=== PATIENT | male | born 1985 | race Caucasian/White ===

== ENCOUNTER 2016-05-01 14:58 | Emergency (ER) | payer MEDICAID ==
[2016-05-01 15:05] VITALS: BP 147/83; PULSE 96; TEMP 98.6
[2016-05-01 15:16] VITALS: BMI 36.1
[2016-05-01] MEDS ORDERED: DIPHTHERIA AND TETANUS (ADULT) 0.5 ML SYR IM ONE ×2 (15:16)
--- NOTE | 2016-05-01 15:23 | EDPRACDOC ---
- General Information Chief Complaint: Foot Pain Stated Complaint: FB IN FOOT Time Seen by Provider: 05/01/16 15:13 Information Source: Patient Mode Of Arrival: Car Home Medications: Home Medications Divalproex Sodium [Depakote] 1,000 mg PO HS 01/03/13 Allergies/Adverse Reactions: Allergies Allergy/AdvReac Type Severity Reaction Status Date / Time No Known Allergies Allergy Verified 05/01/16 15:11 - History of Present Illness Onset: today HPI: STEPPED ON A SMALL PIECE OF GLASS IN HIS HOME. THINKS NEEDS TETANUS. SAYS HE COULDN'T PULL IT OUT HIMSELF BECAUSE HE ALMOST PASSED OUT FROM THE PAIN. Foreign Body Context: Reports: Injury Foreign Body: Glass Location of Possible Foreign Body: FOOT Pain Severity: Mild Shortness of breath: None Associated Signs & Symptoms: Reports: None ED Past Medical History - History Reviewed Yes Nurses notes reviewed and agree except as marked - Patient Medical History Neurological History: Reports: Seizures Psychological History: Denies: Depression Systemic History: Reports: Hypothyroidism - Social Medical History Smoking Status: Never smoker EDM Review of Systems - Review of Systems ROS Negative Except as Marked: Yes All systems reviewed and were negative except as marked Constitutional: No Symptoms Reported Musculoskeletal: Foot Integumentary: Wound - Physical Exam Constitutional: Alert (Awake), No apparent distress Oriented to: Time, Person, Place Last recorded Vital Signs: Last Vital Signs Temp 98.6 F 05/01/16 15:04 Pulse 96 05/01/16 15:04 Resp 18 05/01/16 15:04 BP 147/83 05/01/16 15:04 Pulse Ox 99 05/01/16 15:04 Oxygen Pulse Oxygen Saturation 99 O2 Device Oxygen Flow Rate Fraction of Inspired Oxygen ( FIO2) - HEENT Head: Normal Eye Exam: Normal Neck: Normal, Denies Pain, Midline - Respiratory/Cardiovascular Respiratory: Normal - CTA Cardiovascular: Normal - GI Palpation: Normal Tenderness: Non tender - Musculoskeletal Back: Normal Extremities: Other (NOTED SLIVER OF GLASS AT BOTTOM OF LEFT FOOT IN HEEL; THICK EPIDERMAL TISSUE; SMALL AMOUNT OF BLOOD) - Integumentary Skin: Normal Lymphatics: Normal - Neurologic Cerebellar: Normal Mood Description: Normal Thought: Coherent Perception: Normal ED Procedures - Foreign Body Removal Informed of risks, benefits and alternatives described: Yes Informed Consent Signed: Verbal Possible Foreign Body Removal from: Other (FOOT) Topical Medications: None Anesthetic: None Foreign Body removal attempted using: Manual Extraction Removal Attempt aided by: Forceps Removal Attempt was: FB Indentified Post-procedure exam: Other (PUNCTURE WOUND) Decision Time to Discharge: 15:22 - Departure Disposition: Home Condition: Good Final Diagnosis: Foreign body (FB) in soft tissue Instructions: Soft Tissue Foreign Body (ED) Education/Counseling Given To: Patient Education/Counseling Given Regarding: Diagnosis, Treatment, Follow Up Referrals: Garo Cain MD [Primary Care Provider] - One Week Prescriptions: No Action Divalproex Sodium [Depakote] 1,000 mg PO HS Additional Instructions: ANY RETAINED GLASS WILL WORK ITSELF OUT
== END 2016-05-01 15:36 | disposition home or self-care (01) ==
LOC: EDMC 14:58
DX: S91.349A Puncture wound with foreign body, unspecified foot, initial encounter (principal); W25.XXXA Contact with sharp glass, initial encounter; W45.8XXA Other foreign body or object entering through skin, initial encounter; Y93.9 Activity, unspecified; Z23 Encounter for immunization
CPT/HCPCS: 10120; 90471; 90714; 99282